=== PATIENT | male | born 1935 | race Caucasian/White ===

== ENCOUNTER 2019-02-07 20:45 | Observation (INO) ==
[2019-02-07] MEDS ORDERED: ASPIRIN PO ONE (20:56)
[2019-02-07 21:18] LABS: BASO# 0.02 X1000 (0.0-0.2); BASO% 0.4 % (0.0-0.8); EOS# 0.41 X1000 (0.0-0.7); EOS% 7.7 % (0.0-10.0); HEMATOCRIT 39.2 % (42.0-52.0); HEMOGLOBIN 12.6 g/dL (14.0-18.0); LYMPH# 1.31 X1000 (1.2-3.4); LYMPH% 24.6 % (20.5-51.1); MCH 26.4 PG (27-31); MCHC 32.1 g/dL (33-37); MONO# 0.82 X1000 (0.11-0.59); MONO% 15.4 % (1.7-9.3); MPV 10.9 FL (7.4-10.4); NEUT# 2.76 X1000 (1.4-6.5); NEUT% 51.9 % (42.2-75.2); PLT 252 X1000 (130-400); RBC 4.78 XMIL (4.7-6.1); RDW 14.2 % (11.5-14.5); WBC 5.32 X1000 (4.8-10.8)
--- NOTE | 2019-02-07 21:41 | Diag Imaging Result Doc PS360 ---
EXAM: CHEST-2 VIEWS 02/07/2019 HISTORY: chest pain TECHNIQUE: PA and lateral chest COMMENT: There is a fairly large hiatal hernia. There is pleural thickening on the left. Compared to the previous study of 12/04/2015 there has been no significant change in the appearance of the chest. IMPRESSION: Stable chest. Electronically signed by Dre Frank 02/07/2019 9:39 PM
[2019-02-07 21:45] LABS: ALBUMIN 3.9 g/dL (3.5-5.0); CALCIUM 8.7 mg/dL (8.8-10.2); CREATININE 1.3 mg/dL (0.7-1.2); POTASSIUM 4.7 mmol/L (3.5-5.1); TOTAL BILIRUBIN 0.9 mg/dL (0.20-1.00); TOTAL PROTEIN 6.4 g/dL (6.3-8.3)
[2019-02-07 21:51] LABS: INR 0.94; PROTIME 13.1 Seconds (11.0-16.0); PTT 30.3 Seconds (22.3-41.8)
[2019-02-07] MEDS ORDERED: LOVENOX SUBQ ONE (22:05)
[2019-02-07] MEDS ORDERED: NITROGLYCERIN TOP ONE (22:05)
[2019-02-07] MEDS ORDERED: MORPHINE IV ONE (22:06)
[2019-02-07] MEDS ORDERED: ZOFRAN IV ONE (22:06)
[2019-02-07] MEDS ORDERED: NITROGLYCERIN SL PRN (22:29)
--- NOTE | 2019-02-07 22:31 | PROVIDER DOCUMENTATION ---
This chart was entered by Nancy White Scribe, acting as scribe for Keny Call MD. HPI-Chest Pain - General Chief Complaint: Chest Pain Stated Complaint: CHEST PAIN Time Seen by Provider: 02/07/19 21:16 Source: patient Allergies/Adverse Reactions: Patient Allergies Allergy/AdvReac Type Severity Reaction Status Date / Time No Known Allergies Allergy Verified 02/07/19 21:50 Home Medications: Home Medication List Medication Instructions Recorded Confirmed Last Taken Type Carvedilol [Coreg] 3.125 mg PO DAILY 02/07/19 02/07/19 Unknown History Clopidogrel Bisulfate [Clopidogrel] 75 mg PO DAILY 02/07/19 02/07/19 Unknown History Glipizide [Glucotrol] 10 mg PO DAILY 02/07/19 02/07/19 Unknown History Pantoprazole Sodium 40 mg PO BID 02/07/19 02/07/19 Unknown History Pravastatin Sodium 40 mg PO DAILY 02/07/19 02/07/19 Unknown History Sitagliptin [Januvia] 100 mg PO DAILY 02/07/19 02/07/19 Unknown History Tamsulosin HCl 0.4 mg PO DAILY 02/07/19 02/07/19 Unknown History - History of Present Illness-CP Nature of Presenting Problem: Pt is 84/M presenting to ED w/ L sided heavy c/p that he rates as a 6-7. Pt has hiatal hernia and sts that he always has chest pain but that this is very different. Pt has hx of stents and bypass surgery. Pt took aspirin as well as nitro at home travel pta. Pt started yesterday. Location: reports: substernal Chest Pain Radiation: reports: no radiation Quality of Pain: reports: pressure ("heavy") Severity in ED: moderate Onset/Duration: last night Timing: still present Context/Activities at Onset: reports: none Modifying Factors: improves with: nothing Nitro Today/Relief: 0.4 mg x 1 Aspirin Treatment Today: 325 mg x 1, provided at home Similar Symptoms Previously?: Yes Recently Seen Here or By Another Healthcare Provider: No Review of Systems - Adult - REVIEW OF SYSTEMS - ADULT Constitutional: denies: chills, fever Eyes: reports: no symptoms reported Ears, Nose, Mouth & Throat: reports: no symptoms reported Cardiovascular: reports: chest pain Respiratory: reports: no symptoms reported. denies: cough, shortness of breath, wheezing Gastrointestinal: denies: abdominal pain, nausea, vomiting Genitourinary: reports: no symptoms reported Musculoskeletal: reports: no symptoms reported Integumentary: reports: no symptoms reported Neurological: reports: no symptoms reported. denies: dizziness/vertigo, headache/migraines Psychiatric: reports: no symptoms reported Endocrine: reports: no symptoms reported Hematologic/Lymphatic: reports: no symptoms reported Allergic/Immunologic: reports: no symptoms reported All Other Systems: Reviewed and Negative Past History - Adult - PAST MEDICAL HISTORY-ADULT Review of Records: reports: Old Records Reviewed, Nursing Assessment Review, Medications Reviewed, Social history reviewed & non-contributory. - SOCIAL HISTORY Smoking: denies, non-smoker Substance Use: none/never Alcohol Use Frequency: never Living Situation: family Physical Exam-General - PHYSICAL EXAM-ADULT Initial Vital Signs Reviewed: Yes - CONSTITUTIONAL General Appearance: appears well, alert, no apparent distress - EYES Eyes: PERRL/EOMI, pink conjunctivae - HEAD, EARS, NOSE, MOUTH & THROAT HENMT: normal ENT inspection - NECK Neck: non-tender, full range of motion, supple, normal inspection - RESPIRATORY Respiratory: lungs clear - CARDIOVASCULAR Cardiovascular: regular rate, rhythm - MUSCULOSKELETAL Extremity: normal range of motion, non-tender, normal gait, normal inspection - SKIN Integumentary: normal color, warm/dry - NEUROLOGIC Neurologic: grossly normal - PSYCHIATRIC Psych/Mental Status: normal mood/affect, normal thought content, normal thought process, oriented x 3 - HEART Score HEART Score: History: Moderately Suspicious HEART Score: ECG: Normal HEART Score: Age: > or = 65 Years HEART Score: Risk Factors for Atherosclerotic Disease: > or = 3 Risk Factors or History of Atherosclerotic Disease HEART Score: Troponin: < or = Normal Limit Total HEART Score:: 5 Progress - PLAN OF CARE/RESULTS Progress/Plan/Lab Results: Vital Signs - 8 hr 02/07/19 20:50 Temperature 97.6 F Pulse Rate 73 Respiratory Rate 16 Blood Pressure 146/72 O2 Sat by Pulse Oximetry 94 L Laboratory Results - last 24 hr 02/07/19 02/07/19 02/07/19 21:07 21:07 21:07 WBC 5.32 RBC 4.78 Hgb 12.6 L Hct 39.2 L MCV 82.0 MCH 26.4 L MCHC 32.1 L RDW Std Deviation 14.2 Plt Count 252 MPV 10.9 H Immature Gran % (Auto) 0.0 Neut % (Auto) 51.9 Lymph % (Auto) 24.6 [place] % (Auto) 15.4 H Eos % (Auto) 7.7 Baso % (Auto) 0.4 Immature Gran # (Auto) 0.00 Neut # (Auto) 2.76 Lymph # (Auto) 1.31 [place] # (Auto) 0.82 H Eos # (Auto) 0.41 Baso # (Auto) 0.02 PT INR PTT (Actin FS) D-Dimer, Quantitative Sodium 139 Potassium 4.7 Chloride 104 Carbon Dioxide 25 Anion Gap 10 BUN 21 Creatinine 1.3 H Estimated GFR/1.73 m2 53 BUN/Creatinine Ratio 16 Glucose 197 H Calculated Osmolality 286 Calcium 8.7 L Total Bilirubin 0.90 AST 14 ALT 12 Alkaline Phosphatase 68 Creatine Kinase 80 Troponin T Cju-V-Jwqjnbcoppx Pept 1485 H Total Protein 6.4 Albumin 3.9 Globulin 3.0 Albumin/Globulin Ratio 2.0 02/07/19 02/07/19 02/07/19 21:07 21:07 21:07 WBC RBC Hgb Hct MCV MCH MCHC RDW Std Deviation Plt Count MPV Immature Gran % (Auto) Neut % (Auto) Lymph % (Auto) [place] % (Auto) Eos % (Auto) Baso % (Auto) Immature Gran # (Auto) Neut # (Auto) Lymph # (Auto) [place] # (Auto) Eos # (Auto) Baso # (Auto) PT 13.1 INR 0.94 PTT (Actin FS) 30.3 D-Dimer, Quantitative 0.91 H Sodium Potassium Chloride Carbon Dioxide Anion Gap BUN Creatinine Estimated GFR/1.73 m2 BUN/Creatinine Ratio Glucose Calculated Osmolality Calcium Total Bilirubin AST ALT Alkaline Phosphatase Creatine Kinase Troponin T 0.026 Vcn-Y-Tjbrurqhryj Pept Total Protein Albumin Globulin Albumin/Globulin Ratio Orders Category Date Time Status Admit - [facility] Routine AdmDCTranf 02/07/19 22:31 Active Cardiac Monitoring DIRECTED Care 02/07/19 20:56 Active Oxygen Therapy- ED Nursing DIRECTED Care 02/07/19 20:56 Active Saline Loc NOW Care 02/07/19 20:56 Active NPO Diet 02/08/19 00:01 Active CHEST-2 VIEWS [RAD] Stat Exams 02/07/19 20:56 Completed [place] [MYOCARDIAL PERF SCAN, STR/REST] [NM] Routine Exams 02/07/19 22:27 Ordered A1C HGB W EST AVG GLUCOSE [CHEM] Routine Lab 02/08/19 06:00 Ordered CBC WITH ELECTRONIC DIFF [HEME] Stat Lab 02/07/19 21:07 Completed CK PROFILE [SP CHEM] Stat Lab 02/07/19 21:07 Completed COMPREHENSIVE METABOLIC PANEL [CHEM] Stat Lab 02/07/19 21:07 Completed D-DIMER [COAG] Stat Lab 02/07/19 21:07 Completed LIPID PROFILE W/DIR LDL [LIPIDS] Routine Lab 02/08/19 06:00 Ordered PRO B-NATRIURETIC PEPTIDE Stat Lab 02/07/19 21:07 Completed PROTIME WITH INR [COAG] Stat Lab 02/07/19 21:07 Completed PTT [COAG] Stat Lab 02/07/19 21:07 Completed TROPONIN T Q6H Lab 02/07/19 22:29 Ordered TROPONIN T Q6H Lab 02/08/19 04:29 Ordered TROPONIN T Q6H Lab 02/08/19 10:29 Ordered TROPONIN T Stat Lab 02/07/19 21:07 Completed Aspirin Med 02/07/19 20:56 Discontinued 325 mg PO NOW ONE Enoxaparin [Lovenox] Med 02/07/19 22:05 Discontinued 90 mg SUBQ NOW ONE Morphine Med 02/07/19 22:06 Discontinued 2 mg IV NOW ONE Morphine Med 02/07/19 22:30 Ordered 2 mg IV Q4H PRN PRN Nitroglycerin Med 02/07/19 22:05 Discontinued 0.5 inch TOP NOW ONE Nitroglycerin Sl [Nitroglycerin] Med 02/07/19 22:29 Ordered 0.4 mg SL Q5M PRN PRN Ondansetron [Zofran] Med 02/07/19 22:06 Discontinued 4 mg IV NOW ONE CP/SOB/Palp >45 yrs of Age Stat Oth 02/07/19 20:56 Ordered EKG [EKG] Stat Ther 02/07/19 20:56 Ordered EKG [EKG] Stat Ther 02/07/19 22:07 Ordered Echo Spec/Color Doppler Routine Ther 02/07/19 22:28 Ordered Result Diagrams: 02/07/19 21:07 02/07/19 21:07 - EKG 1 Time of EKG reading by physician:: 20:54 EKG Read and Signed by:: Keny Call EKG Interpretation (*Must complete 3 of following elements*): Abnormal (sinus rhythm with prematrue supraventricular complexes and with occasional premature ventricualr complexes. Nonspecific ST and T wave abnormalities. Abnormal ECG) Rate: 66 Rhythm: Sinus [place]: normal QRS: normal - CONSULTS/PCP/HOSPITALIST Notification #1 *Consult/PCP/Hospitalist*: Dr. Waters Time Discussed: 22:26 Consult Disposition: Admit Departure - Departure Date of Disposition Decision: 02/07/19 Time of Disposition Decision: 22:34 DIAGNOSIS: Chest pain Qualifiers: Chest pain type: unspecified Qualified Code(s): R07.9 - Chest pain, unspecified CAD (coronary artery disease) Qualifiers: Coronary Disease-Associated Artery/Lesion type: [place] artery [place] vs. transplanted heart: [place] heart Associated angina: with unspecified angina Qualified Code(s): I25.119 - Atherosclerotic heart disease of [place] coronary artery with unspecified angina pectoris Disposition: ADMITTED INPATIENT 09 Certified Medical Emergency: Emergent Condition: Stable Referrals and Follow-Ups: Lester Frances MD [Primary Care Provider] - - Critical Care Note This patient required my direct & personal management of CC.: No Attestation - Physician/ JOCELIN Attestation Patient care was provided by Advanced Practice Provider:: No The physician spent face to face time with patient:: Yes Advanced Practice Provider documentation review:: Supervising physician onsite and consulted in the evaluation and care of this patient. The physician did have a face to face encounter with the patient. This chart was documented by the indicated scribe, (Nancy White, Shahrzad) and accurately reflects the services I performed and decisions made by me, Keny Goff MD, as attested by the provider's signature.
[2019-02-08] MEDS: MORPHINE IV PRN ×2 (02:09→22:23)
--- NOTE | 2019-02-08 03:30 | EKG Report ---
Test Performed on : 02/07/2019 8:54:12 PM Test Reason : pain Blood Pressure : / mmHG Vent. Rate : 066 BPM Atrial Rate : 066 BPM P-R Int : 180 ms QRS Dur : 102 ms QT Int : 426 ms P-R-T Axes : 041 -09 184 degrees QTc Int : 446 ms Sinus rhythm. with premature supraventricular complexes. and with occasional premature ventricular co mplexes. Nonspecific ST and T wave abnormality Abnormal ECG When compared with ECG of 26-OCT-2010 12:09, premature supraventricular complexes. are now present T wave inversion no longer evident in Anterior leads Unconfirmed Result
[2019-02-08 04:53] LABS: HEMOGLOBIN A1C 8.3 % (4.8-6.0)
--- NOTE | 2019-02-08 10:46 | EKG Report ---
Test Performed on : 02/08/2019 07:18:14 AM Test Reason : ROUTINE Blood Pressure : / mmHG Vent. Rate : 064 BPM Atrial Rate : 064 BPM P-R Int : 180 ms QRS Dur : 108 ms QT Int : 434 ms P-R-T Axes : -22 026 151 degrees QTc Int : 447 ms Sinus rhythm. with occasional premature ventricular complexes. and premature atrial complexes. Low voltage QRS Incomplete left bundle branch block Nonspecific ST and T wave abnormality Abnormal ECG When compared with ECG of 07-FEB-2019 20:54, (Unconfirmed) No significant change was found Unconfirmed Result
--- NOTE | 2019-02-08 11:51 | Diag Imaging Result Doc PS360 ---
EXAM: CT ANGIOGRM PULMONARY ARTERIES HISTORY: d dimer/chest pain TECHNIQUE: CT chest with intravenous contrast. Pulmonary arterial protocol. MIP images obtained. COMPARISON: 02/05/2019. FINDINGS: There is normal opacification of the pulmonary arteries and their proximal major branches. No thoracic aortic aneurysm or dissection. Prominent atherosclerosis. The heart is enlarged. There are small bilateral pleural effusions measuring less than 1 cm in thickness. There is a large hiatal hernia versus eventration of the left hemidiaphragm. No enlarged lymph nodes. Sternal wires are present. Nodular increased markings laterally and inferiorly in the left upper lobe and lower lobe. IMPRESSION: 1.No pulmonary emboli 2.Tiny pleural effusions larger than on the prior study 3.Worsening atelectasis or infiltrates laterally in the left lower lobe. Stable area in the left upper lobe. 4.Large hiatal hernia 5.Cardiomegaly with atherosclerosis This exam was performed using automated exposure control, adjustment of mA or kV according to patient size, and/or use of iterative reconstruction technique. Electronically signed by Gregory Dailey 02/08/2019 11:49 AM
[2019-02-08] MEDS ORDERED: LEXISCAN ONE (12:51)
[2019-02-08] MEDS: JANUVIA PO SCH (13:05)
[2019-02-08] MEDS: COREG PO SCH ×2 (13:05→21:19)
[2019-02-08] MEDS: PLAVIX PO SCH (13:05)
--- NOTE | 2019-02-08 13:11 | Extremity Venous Study ---
EXAM: Venous U/S Bilateral Legs HISTORY: d dimer TECHNIQUE: Bilateral lower extremity venous Doppler ultrasound COMPARISON: None. FINDINGS: Right: There is good flow and compressibility in the veins of the right lower extremity. No thrombus. Left: There is good flow and compressibility in the veins of the left lower extremity. No thrombus. IMPRESSION: No evidence of deep venous thrombosis within either lower extremity. Electronically signed by Gregory Dailey 02/08/2019 1:09 PM
--- NOTE | 2019-02-08 13:40 | Diag Imaging Result Document ---
PROCEDURE NAME: MYOCARDIAL PERF SCAN, STR/REST - 02/07/2019 STUDY PERFORMED: Lexiscan Cardiolite stress test. Stress test by Dr. Martinez. DETAILS OF STUDY/FINDINGS: Following Lexiscan infusion, Cardiolite was injected, and 13.1 mCi of Cardiolite was injected for the rest phase and 39.6 mCi of Cardiolite was injected for the stress phase. Gated SPECT images were obtained in standard views. Images revealed significant diaphragmatic and chest wall attenuation. Left ventricle is dilated. There is a low-grade, small to moderate size, reversible perfusion defect in the mid and base of the anterior wall. This could represent ischemia versus attenuation defect. Would recommend clinical correlation. Left ventricular ejection fraction by gated SPECT was 47%. Left ventricle was dilated. CONCLUSIONS: 1. Left ventricle is dilated. 2. Myocardial perfusion images reveal low-grade, small to moderate size reversible perfusion defect in the mid and base of the inferior wall associated with significant chest wall attenuation. Would recommend clinical correlation. 3. This could represent ischemia. 4. Left ventricular ejection fraction by gated SPECT was 47%. cc: MD Jesus Dominguez MD
--- NOTE | 2019-02-08 15:10 | ECHO REPORT ---
ORDER DATE: 02/07/2019 MEASUREMENTS: 1. Interventricular septum 1.3. 2. Left ventricular posterior wall 1.4. 3. Diastolic diameter 5.4. 4. Left atrium 5.6. 5. Aorta 2.4. SUMMARY OF TWO-DIMENSIONAL IMAGIN. Aortic valve leaflets were trileaflet. 2. Mitral valve was normal. 3. Tricuspid valve was normal. 4. Pulmonic valve was normal. 5. There is sever left atrial enlargement. 6. Moderate tricuspid regurgitation. Peak velocity across the tricuspid valve was 3.7 m/sec. 7. Pulmonary artery systolic pressure of 65 mmHg. 8. Peak velocity across the aortic valve less than 2 m/sec by Doppler studies. There is no aortic stenosis or regurgitation. Normal left ventricular cavity size. Concentric left ventricular hypertrophy. Estimated ejection fraction 45% to 50%. 9. There is no pericardial effusion or obvious intracardiac mass or thrombus seen. cc: MD Jesus Domignuez MD Gregory S. Cheatham, MD
[2019-02-08] MEDS ORDERED: ROCEPHIN 1 GM in NS 50 ML IV SCH (19:15)
[2019-02-08] MEDS: ZITHROMAX PO SCH (20:01)
[2019-02-08] MEDS ORDERED: FLOMAX PO SCH (21:00)
[2019-02-08] MEDS ORDERED: PRAVACHOL PO SCH (21:00)
[2019-02-08] MEDS ORDERED: GLUCOPHAGE PO SCH (21:00)
[2019-02-08] MEDS ORDERED: MAALOX PLUS LIQUID PO PRN (23:39)
[2019-02-09] MEDS ORDERED: ZOFRAN ODT PO SCH (01:00)
[2019-02-09] MEDS ORDERED: ZOFRAN ODT PO PRN (01:13)
[2019-02-09] MEDS ORDERED: PROTONIX PO SCH (07:00)
[2019-02-09 08:08] VITALS: BP 117/63
--- NOTE | 2019-02-09 08:36 | HISTORY AND PHYSICAL ---
CHIEF COMPLAINT: Chest pain. HISTORY OF PRESENT ILLNESS: Patient is an 84-year-old male who presented to the ER noting he was having chest pain left-sided. No radiation. He does have some nausea but states this is chronic. States the pain is different from his chronic pain. He does note that he has been under a lot of stress lately, not been sleeping as well, has also been more doing more physical labor and is unsure if either of these are the cause of his current pain. SOCIAL HISTORY: He is , lives at home. He is retired. He no longer smokes. He does not drink. ALLERGIES: No known drug allergies. MEDICATIONS: Coreg 3.125 twice daily, Plavix 75, Glucotrol 10, Protonix 40, tamsulosin 0.4, Januvia 100, Pravachol 40. PAST MEDICAL HISTORY: Hypertension, diabetes, chronic reflux, high cholesterol. REVIEW OF SYSTEMS: As noted above. Denies any fevers, chills, cough, congestion. Denies dysuria, frequency, or urgency. Denies polyuria or polydipsia. Denies any skin rashes, weight loss or weight gain. Denies any upper respiratory type symptoms. Denies fevers or chills. He has chest pain as noted above. FAMILY HISTORY: Noncontributory. PHYSICAL EXAMINATION: VITAL SIGNS: Reviewed. Patient is awake, alert. Temperature 97.6, pulse 73, BP 146/72, saturation 94% on room air. GENERAL: Patient is awake, alert, very pleasant. He is in no distress. He is still having some chest pain. HEENT: Normocephalic. NECK: Supple. CARDIOVASCULAR: Regular rate. No murmurs. CHEST: Clear, nonlabored. ABDOMEN: Soft, nondistended, nontender. EXTREMITIES: Moves all extremities. NEUROLOGIC: No changes. LABORATORY DATA: First 2 sets of cardiac enzymes are negative. ASSESSMENT: 1. Chest pain. 2. Hypertension. 3. Diabetes. 4. Advanced age. 5. Former tobacco abuse. 6. High cholesterol. PLAN: We will admit patient to the hospital, continue to follow him, rule out [place], attempt to obtain the stress films today if possible. Further orders as needed. cc: Lester Frances MD [facility]
[2019-02-09] MEDS: PLAVIX PO SCH (09:21)
[2019-02-09] MEDS: COREG PO SCH (09:21)
[2019-02-09] MEDS: JANUVIA PO SCH (09:21)
[2019-02-09] MEDS: ZITHROMAX PO SCH (09:21)
--- NOTE | 2019-02-09 15:25 | DISCHARGE SUMMARY ---
ADMISSION DATE: 02/07/2019 DISCHARGE DATE: 02/09/2019 DISCHARGE DIAGNOSES: 1. Left lower lobe pneumonia. 2. Left-sided chest pain, most likely noncardiac secondary to his pneumonia and his hiatal hernia. 3. Large hiatal hernia. 4. Abnormal stress test in a patient with known coronary disease. 5. Hypertension. 6. Diabetes. 7. High cholesterol. CONSULTATIONS: None. PROCEDURES: Stress test. BRIEF HOSPITAL COURSE: Patient is an 84-year-old male who presented to [facility] ER secondary to left-sided chest pain with no radiation. It hurts to take a deep breath. He was nauseated. Does have a history of diabetes, known coronary disease, high cholesterol, and elevated D-dimer so CT was performed. No pulmonary emboli. 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 He is having issues with his hiatal hernia as well with nausea. Stress test was not grossly abnormal. He therefore was placed on antibiotics, did continue to have some issues with his nausea and hiatal hernia. He improved. On discharge, his chest pain, which had been persistent for the previous 24 to 36 hours, had almost completely resolved. DISPOSITION: Patient will be discharged home. Discussed with him he needs to follow up outpatient with his director of diversity and inclusion and they can decide if he needs a repeat heart catheterization. He has had a stent in the past, had a heart catheterization approximately a year ago. He will be discharged on antibiotics. Greater than 30 minutes was spent in total. cc: Lester Frances MD
== END 2019-02-09 10:10 | disposition home or self-care (01) ==
LOC: P.ED 20:45 → P.MEDSURG 20:45 → SUATTDRO 22:31
PROVIDERS: ADMIT Family Medicine; ATTEND Family Medicine
CPT/HCPCS: 71020; 71046; 71275; 78452; 80053; 80061; 82550; 82948; 83036; 83721; 83735; 83880; 84484; 85025; 85379; 85610; 85730; 93005; 93017; 93306; 93970; 94761; A9270; A9500; C8929; J0696; J1650; J2270; J2405; J2785; Q9957; Q9967; XXXXX